=== PATIENT | female | born 1985 | race Caucasian/White ===

== ENCOUNTER 2018-12-16 08:56 | Day surgery (SDC) | payer OTHER ==
[~2018-12-16 08:56] MED LIST: DICLOFENAC 0.1% 2.5 ML OPH OPER; LACTATED RINGER'S 1,000 ML IV*; MOXIFLOXACIN 0.5% 3 ML OPH OPER
[2018-12-16] MEDS: TROPICAMIDE 1% 15 ML OPH OPER ×2 (09:53→11:33)
[2018-12-16] MEDS: PHENYLephrine 2.5% 15 ML OPH OPER (09:53)
[2018-12-16] MEDS: CYCLOPENTOLATE 1% 2 ML OPH OPER (09:54)
[2018-12-16] MEDS ORDERED: EPHEDrine SULFATE 50 MG/5 ML SYG IV (11:00)
[2018-12-16] MEDS ORDERED: hydrALAzine 20 MG INJ IV (11:00)
[2018-12-16] MEDS ORDERED: FENTAnyl 50 MCG/ML VIAL IV ×3 (11:00)
[2018-12-16] MEDS ORDERED: MEPERIDINE 25 MG INJ IV (11:00)
[2018-12-16] MEDS ORDERED: FENTAnyl 50 MCG/ML VIAL (11:00)
[2018-12-16] MEDS ORDERED: MIDAZOLAM 1 MG/ML 2 ML INJ IV (11:00)
[2018-12-16] MEDS ORDERED: TRIMETHOBENZAMIDE 100 MG/ML VIAL IM (11:00)
[2018-12-16] MEDS ORDERED: IPRATROPIUM (NEB) 0.5 MG/2.5 ML AMP HHN (11:00)
[2018-12-16] MEDS ORDERED: LABETALOL HCL 20MG INJ IV (11:00)
[2018-12-16] MEDS ORDERED: ALBUTEROL 0.083% (NEB) 2.5 MG/3 ML AMP HHN (11:00)
[2018-12-16] MEDS ORDERED: DIPHENHYDRAMINE 50 MG INJ IV (11:00)
[2018-12-16] MEDS ORDERED: ONDANSETRON 4 MG INJ IV (11:00)
[2018-12-16] MEDS ORDERED: HYDROmorphONE 1 MG/5 ML IV SYRINGE IV ×3 (11:00)
[2018-12-16] MEDS ORDERED: OXYCODONE/ACETAMINOPHEN (5/325) TAB PO ×2 (11:00)
[2018-12-16] MEDS ORDERED: ONDANSETRON 4 MG INJ (11:02)
[2018-12-16] MEDS: ACETAMINOPHEN 325 MG TAB PO (13:50)
== END 2018-12-16 14:15 | disposition home or self-care (01) ==
LOC: SDS 08:56
DX: H25.041 Posterior subcapsular polar age-related cataract, right eye (principal); E66.9 Obesity, unspecified; Z68.31 Body mass index [BMI] 31.0-31.9, adult
CPT/HCPCS: 66984; 84703

== ENCOUNTER 2019-01-27 10:23 | Day surgery (SDC) | payer OTHER ==
[2019-01-27] MEDS: CYCLOPENTOLATE 1% 2 ML OPH OPER (11:17)
[2019-01-27] MEDS: PHENYLephrine 2.5% 15 ML OPH OPER (11:17)
[2019-01-27] MEDS: MOXIFLOXACIN 0.5% 3 ML OPH OPER (11:17)
[2019-01-27] MEDS: TROPICAMIDE 1% 15 ML OPH OPER (11:17)
[2019-01-27] MEDS: NEPAFENAC 0.1% 3 ML OPH OPER (11:17)
[2019-01-27] MEDS: TETRACAINE 0.5% 4 ML OPH LEFT EYE (11:45)
[2019-01-27] MEDS: LIDOCAINE 1% (MPF) 10 ML INJ INJ (11:45)
[2019-01-27] MEDS ORDERED: LIDOCAINE 1% (MPF) 10 ML INJ (11:47)
[2019-01-27] MEDS ORDERED: TOBRAMYCIN/DEXAMETH 3.5 GM OPH OINT (11:47)
[2019-01-27] MEDS ORDERED: EPINEPHrine 1 MG INJ (11:47)
[2019-01-27] MEDS ORDERED: TIMOLOL MALEATE/PF 0.5% OCCUDOSE (0.3 ML) (11:47)
[2019-01-27] MEDS ORDERED: DIPHENHYDRAMINE 50 MG INJ IV (12:00)
[2019-01-27] MEDS ORDERED: IPRATROPIUM (NEB) 0.5 MG/2.5 ML AMP HHN (12:00)
[2019-01-27] MEDS ORDERED: ONDANSETRON 4 MG INJ IV (12:00)
[2019-01-27] MEDS ORDERED: ALBUTEROL 0.083% (NEB) 2.5 MG/3 ML AMP HHN (12:00)
[2019-01-27] MEDS ORDERED: MEPERIDINE 25 MG INJ IV (12:00)
[2019-01-27] MEDS ORDERED: hydrALAzine 20 MG INJ IV (12:00)
[2019-01-27] MEDS ORDERED: OXYCODONE/ACETAMINOPHEN (5/325) TAB PO ×2 (12:00)
[2019-01-27] MEDS ORDERED: EPHEDrine SULFATE 50 MG/5 ML SYG IV (12:00)
[2019-01-27] MEDS ORDERED: MIDAZOLAM 1 MG/ML 2 ML INJ IV (12:00)
[2019-01-27] MEDS ORDERED: FENTAnyl 50 MCG/ML VIAL IV ×3 (12:00)
[2019-01-27] MEDS ORDERED: LABETALOL HCL 20MG INJ IV (12:00)
[2019-01-27] MEDS ORDERED: HYDROmorphONE 1 MG/5 ML IV SYRINGE IV ×3 (12:00)
[2019-01-27] MEDS ORDERED: TRIMETHOBENZAMIDE 100 MG/ML VIAL IM (12:00)
[2019-01-27] MEDS ORDERED: LIDOCAINE 2% (SDV) 5 ML INJ (12:01)
[2019-01-27] MEDS ORDERED: FENTAnyl 50 MCG/ML VIAL (12:01)
[2019-01-27] MEDS ORDERED: PROPOFOL 20 ML (12:01)
[2019-01-27] MEDS: TOBRAMYCIN/DEXAMETH 3.5 GM OPH OINT LEFT EYE (12:35)
[2019-01-27] MEDS: ACETAZOLAMIDE (SR) 500 MG CAP PO (13:19)
== END 2019-01-27 14:20 | disposition home or self-care (01) ==
LOC: SDS 10:23
DX: H25.042 Posterior subcapsular polar age-related cataract, left eye (principal); E66.9 Obesity, unspecified
CPT/HCPCS: 66984